=== PATIENT | female | born 1995 | race Caucasian/White ===

== ENCOUNTER 2017-12-31 19:08 | Emergency (ER) | payer OTHER ==
[2017-12-31] MEDS ORDERED: DICYCLOMINE 10 MG CAPSULE PO STA (19:35)
[2017-12-31] MEDS ORDERED: PROMETHAZINE 25 MG TABLET PO STA (19:35)
[2017-12-31] MEDS ORDERED: LOPERAMIDE 2 MG CAPSULE PO STA (19:35)
--- NOTE | 2017-12-31 19:35 | ED Physician Documentation ---
PD HPI ABD PAIN - Stated complaint Stated Complaint: ABD PX/DIZZY - Chief complaint Chief Complaint: Abd Pain - History obtained from History obtained from: Patient - History of Present Illness Timing - onset: Other (She been on penicillin and prednisone for a couple of days for throat pain, and then went to the [employer] [facility] today for STD concerns. They did cultures and blood work per her which she does not know the results yet. This was about 4:30 PM and she drank what sounds like a gram of Zithromax in addition to Rocephin IM. About an hour later she started to get central abdominal cramping with one episode of diarrhea and nausea but no vomiting.) Review of Systems Constitutional: denies: Fever, Chills Nose: denies: Rhinorrhea / runny nose, Congestion Respiratory: denies: Dyspnea, Cough GI: denies: Constipation, Hematemesis, Bloody / black stool : denies: Dysuria, Frequency PD PAST MEDICAL HISTORY - Past Medical History Past Medical History: No - Past Surgical History Past Surgical History: No - Present Medications Home Medications: Ambulatory Orders Medication Instructions Recorded Confirmed Montelukast [Singulair] 12/31/17 Penicillin V Potassium 12/31/17 Prednisone [Júnior] 12/31/17 - Allergies Allergies/Adverse Reactions: Allergies Allergy/AdvReac Type Severity Reaction Status Date / Time No Known Drug Allergies Allergy Verified 12/31/17 19:15 - Social History Does the pt smoke?: No Smoking Status: Never smoker Does the pt drink ETOH?: No Does the pt have substance abuse?: No - Immunizations Immunizations are current?: Yes - POLST Patient has POLST: No PD ED PE NORMAL - Vitals Vital signs reviewed: Yes - General General: Alert and oriented X 3, No acute distress - Abdomen Abdomen: Normal bowel sounds, Soft, Non tender - Neuro Neuro: Alert and oriented X 3, Normal speech - Psych Psych: Normal mood, Normal affect Results - Vitals Vitals: Vital Signs - 24 hr 12/31/17 19:12 Temperature 36.5 C Heart Rate 74 Respiratory 20 Rate Blood Pressure 135/86 H O2 Saturation 98 Oxygen O2 Source Room air - Labs Labs: Laboratory Tests 12/31/17 20:15 Urine Color YELLOW Urine Clarity CLEAR Urine pH 6.0 Ur Specific [place] 1.010 Urine Protein NEGATIVE Urine Glucose (UA) NEGATIVE Urine Ketones NEGATIVE Urine Occult Blood TRACE-INTA Urine Nitrite NEGATIVE Urine Bilirubin NEGATIVE Urine Urobilinogen 0.2 (NORMAL) Ur Leukocyte Esterase NEGATIVE Ur Microscopic Review NOT INDICATED Urine Culture Comments NOT INDICATED Urine HCG, Qual NEGATIVE PD MEDICAL DECISION MAKING - ED course ED course: The time course almost guarantees that this is a side effect from the Zithromax causing abdominal cramping and nausea for which she is treated. - Sepsis Event Vital Signs: Vital Signs - 24 hr 12/31/17 19:12 Temperature 36.5 C Heart Rate 74 Respiratory 20 Rate Blood Pressure 135/86 H O2 Saturation 98 Oxygen O2 Source Room air Departure - Departure Disposition: Home, Self Care Clinical Impression: Abdominal pain Qualifiers: Abdominal location: generalized Qualified Code(s): R10.84 - Generalized abdominal pain Condition: Good Record reviewed to determine appropriate education?: Yes Instructions: ED Abdominal Pain Unkn Cause Comments: This should be brief side effects from the antibiotics were given at the [employer] [facility], if persistent pain lasts till tomorrow morning please return for reevaluation.
[2017-12-31 20:35] LABS: BILIRUBIN,URINE NEGATIVE (NEGATIVE); CLARITY,URINE CLEAR (CLEAR); GLUCOSE, URINE (UA) NEGATIVE (NEGATIVE); HCG UR QUAL NEGATIVE; KETONES,URINE (UA) NEGATIVE (NEGATIVE); LEUKOCYTE ESTERASE, URINE NEGATIVE (NEGATIVE); NITRITE,URINE NEGATIVE (NEGATIVE); OCCULT BLOOD,URINE TRACE-INTA (NEGATIVE); PROTEIN,URINE NEGATIVE (NEGATIVE); UROBILINOGEN,URINE 0.2 (NORMAL) E.U./dL (NORMAL)
[2017-12-31 21:01] VITALS: BP 127/73
== END 2017-12-31 21:00 | disposition home or self-care (01) ==
LOC: ED 19:08
DX: R10.84 Generalized abdominal pain (principal); R11.0 Nausea
CPT/HCPCS: 81003; 81025; 99283; A9270; Q0169; 81001; 87086